=== PATIENT | male | born 1965 ===

== ENCOUNTER 2021-11-11 19:57 | Emergency (ER) | payer BC ==
[2021-11-11] MEDS ORDERED: Lidocaine 1% PF 2 ML SDV ONE (20:40)
[2021-11-11] MEDS ORDERED: Amoxicillin/Clavulanate K 875-125 MG Tab PO ONE (20:40)
[2021-11-11] MEDS ORDERED: Diphtheria,Pertussis(Acell),Tetanus Vaccine 0.5 ML Syringe IM ONE (20:40)
[2021-12-03] MEDS ORDERED: Diphtheria,Pertussis(Acell),Tetanus Vaccine 0.5 ML Syringe IM ONE (14:45)
== END 2021-11-11 21:18 | disposition home or self-care (01) ==
LOC: MW.ED 19:57
DX: S61.451A Open bite of right hand, initial encounter (principal); W54.0XXA Bitten by dog, initial encounter
CPT/HCPCS: 12001; 90471; 99283; A9270